=== PATIENT | male | born 1955 | race Caucasian/White ===

== ENCOUNTER 2017-08-04 12:07 | Emergency (ER) | payer OTHER ==
[2017-08-04 12:16] VITALS: RESP 18; O2SAT 98
--- NOTE | 2017-08-04 12:19 | EDPHY ---
H & P Stated Complaint: ?Diverticulitis flare up since Saturday after ETOH consumption Time Seen by Provider: 08/04/17 12:19 - Personal History Current Tetanus Diphtheria and Acellular Pertussis (TDAP): Unsure - Medical/Surgical History Hx Asthma: No Hx Chronic Respiratory Disease: No Hx Diabetes: No Hx Cardiac Disease: Yes Hx Renal Disease: No Hx Cirrhosis: No Hx Alcoholism: Yes Hx HIV/AIDS: No Hx Splenectomy or Spleen Trauma: No Other PMH: diverticulitis, enlarged aorta, left ventricular hypertrophy, HTN, alcohol issues - Social History Smoking Status: Light smoker Constitutional: Initial Vital Signs Temperature (C) 37.4 C 08/04/17 12:10 Heart Rate 84 08/04/17 12:10 Respiratory Rate 18 08/04/17 12:10 Blood Pressure 111/80 08/04/17 12:10 O2 Sat (%) 98 08/04/17 12:10 O2 Delivery Mode Room Air Allergies/Adverse Reactions: No Known Allergies Allergy (Verified 08/04/17 12:15) Home Medications: Medication Instructions Recorded Ramipril 02/13/15 Ondansetron Odt [Zofran Odt 4 mg 4 mg PO Q4 PRN #6 tab 04/06/15 (*)] Amoxicillin/Clavulanate Pot 875 mg PO 08/04/17 [Augmentin 875 MG TAB (*)] Amoxicillin/Clavulanate Pot 875 mg PO BID #20 tab 08/04/17 [Augmentin 875 MG TAB (RX)] Citalopram [CeleXA 20 MG] 08/04/17 HYDROcodone/APAP 10/325 [[place] 1 - 2 each PO Q4-6PRN PRN #20 tab 08/04/17 10/325] Medical Decision Making - Diagnostics Imaging Results: Imaging Impressions Abdomen CT 08/04/17 12:36 Impression: 1. Diverticulosis throughout the colon with evidence of mild diverticulitis in the inferior descending colon in the left pelvis. 2. Degenerative disk and degenerative joint disease lumbar spine, most severe at L5-S1. Bilateral sacroiliitis. 3. Fatty infiltration of the liver. Results called and discussed with Juan F Galvan MD on August 04, 2017 at 1332 hours. ED Course/Re-evaluation: CHIEF COMPLAINT: Recurrent diverticulitis HISTORY OF PRESENT ILLNESS: 62-year-old gentleman who has a history of alcoholism and diverticulitis. He had a drinking binge on Saturday or Saturday of this past week. He also feels like he is having a flare-up diverticulitis of his sigmoid colon which she has had multiple times in the past. He has had of times at his doctor provide him with Augmentin prescription to keep on hand he started that a few days ago. He is having nausea vomiting diarrhea and left lower quadrant abdominal pain which is continued came here for further evaluation. Denies any fevers or chills. REVIEW OF SYSTEMS: A 10 point review of systems was performed and is negative with the exception of the elements mentioned in the history of present illness. PHYSICAL EXAM: HR, BP, O2 Sat, RR. Temp noted General Appearance: Alert, well hydrated, appropriate, and non-toxic appearing. Head: Atraumatic without scalp tenderness or obvious injury Eyes: Pupils equal, round, reactive to light and accommodation, EOMI, no trauma , no injection. Ears: Clear bilaterally, no perforation, normal landmarks Nose: Atraumatic, no rhinorrhea, clear. Throat: There is no erythema or exudates, no lesions, normal tonsils, mucus membranes moist. Neck: Supple, 2+ carotid upstroke, nontender, no lymphadenopathy. Respiratory: No retractions, no distress, no wheezes, and no accessory muscle use. Lungs are clear to auscultation bilaterally. Cardiovascular: Regular rate and rhythm, no murmurs, rubs, or gallops. Bilateral carotid, radial, dorsalis pedis, and posterior tibial pulses intact. Good capillary refill all extremities. Gastrointestinal: Abdomen is soft, tenderness in left lower quadrant, non- distended, no masses, no rebound, no guarding, no peritoneal signs. Musculoskeletal: Normal active ROM of all extremities, atraumatic. Neurological: Alert, appropriate, and interactive. The patient has normal DTRs and non-focal cranial nerves, motor, sensory, and cerebellar exam. Skin: No rashes, good turgor, no nodules on palpation. Past medical history: Diverticulitis and alcoholism Past surgical history: Noncontributory Family history: Noncontributory Social history: Employed, single, does not abuse tobacco or drugs, alcohol abuse which she is trying to control DIAGNOSTICS/PROCEDURES/CRITICAL CARE TIME: Study: CT of the abdomen and pelvis with IV contrast Indication: left lower quadrant pain nausea vomiting diarrhea history of diverticulitis Results: CT scan of the body parts was obtained. The results of the study are uncomplicated left sigmoid colon diverticulitis. The study was read by the radiologist, . I viewed the images myself on the PACS system. DIFFERENTIAL DIAGNOSIS: The differential diagnosis for the patient's abdominal pain included but was not limited to appendicitis, cholecystitis, hernias, testicular torsion, gastritis, and urinary tract infection. MEDICAL DECISION MAKING: This patient is not systemically ill. He does have left lower quadrant tenderness nausea vomiting diarrhea. He feels like he has recurring episode of diverticular disease. Although he had significant amount alcohol a few days ago he has not had a significant amount recently and does not feel like his alcohol is a contributor to today's visit. Laboratory studies CT scan are pending. He has been on the Augmentin 875 mg twice daily for the last 2-3 days. 1332: I confirmed diagnosis with radiology. Plan for discharge with Augmentin and analgesics. Followup instructions and return precautions given. Patient agrees to this course of action. - Data Points Laboratory Results: Laboratory Results 08/04/17 12:11 08/04/17 12:11 08/04/17 08/04/17 08/04/17 12:37 12:11 12:11 WBC 11.65 10^3/uL H 10^3/uL (3.80-9.50) RBC 4.88 10^6/uL 10^6/uL (4.40-6.38) Hgb 16.7 g/dL g/dL (13.7-17.5) POC Hgb 17.3 gm/dL gm/dL (13.7-17.5) Hct 47.5 % % (40.0-51.0) POC Hct 51 % % (40-51) MCV 97.3 fL fL (81.5-99.8) MCH 34.2 pg H pg (27.9-34.1) MCHC 35.2 g/dL g/dL (32.4-36.7) RDW 13.3 % % (11.5-15.2) Plt Count 256 10^3/uL 10^3/uL (150-400) MPV 11.6 fL fL (8.7-11.7) Neut % (Auto) 75.4 % H % (39.3-74.2) Lymph % (Auto) 11.2 % L % (15.0-45.0) [place] % (Auto) 11.6 % % (4.5-13.0) Eos % (Auto) 0.8 % % (0.6-7.6) Baso % (Auto) 0.6 % % (0.3-1.7) Nucleat RBC Rel Count 0.0 % % (0.0-0.2) Absolute Neuts (auto) 8.78 10^3/uL H 10^3/uL (1.70-6.50) Absolute Lymphs (auto) 1.31 10^3/uL 10^3/uL (1.00-3.00) Absolute Monos (auto) 1.35 10^3/uL H 10^3/uL (0.30-0.80) Absolute Eos (auto) 0.09 10^3/uL 10^3/uL (0.03-0.40) Absolute Basos (auto) 0.07 10^3/uL 10^3/uL (0.02-0.10) Absolute Nucleated RBC 0.00 10^3/uL 10^3/uL (0-0.01) Immature Gran % 0.4 % % (0.0-1.1) Immature Gran # 0.05 10^3/uL 10^3/uL (0.00-0.10) POC Sodium 140 mEq/L mEq/L (134-144) Sodium 141 mEq/L mEq/L (134-144) POC Potassium 3.7 mEq/L mEq/L (3.3-5.0) Potassium 4.0 mEq/L mEq/L (3.5-5.2) POC Chloride 103 mEq/L mEq/L (97-110) Chloride 101 mEq/L mEq/L (97-110) Carbon Dioxide 27 mEq/l mEq/l (22-31) Anion Gap 13 mEq/L mEq/L (8-16) POC BUN 20 mg/dL mg/dL (7-23) BUN 19 mg/dL mg/dL (7-23) Creatinine 1.0 mg/dL mg/dL (0.7-1.3) POC Creatinine 1.0 mg/dL mg/dL (0.7-1.3) Estimated GFR > 60 Glucose 110 mg/dL H mg/dL (70-100) POC Glucose 112 mg/dL H mg/dL (70-100) Calcium 10.1 mg/dL mg/dL (8.5-10.4) Total Bilirubin 0.7 mg/dL mg/dL (0.1-1.4) Conjugated Bilirubin 0.1 mg/dL mg/dL (0.0-0.5) Unconjugated Bilirubin 0.6 mg/dL mg/dL (0.0-1.1) AST 35 IU/L IU/L (17-59) ALT 48 IU/L IU/L (21-72) Alkaline Phosphatase 82 IU/L IU/L (38-126) Total Protein 7.1 g/dL g/dL (6.3-8.2) Albumin 4.3 g/dL g/dL (3.5-5.0) Lipase 54 IU/L IU/L (23-300) Medications Given: Discontinued Medications Sodium Chloride (Ns) 1,000 mls @ 0 mls/hr IV EDNOW ONE; Wide Open PRN Reason: Protocol Stop: 08/04/17 12:37 Last Admin: 08/04/17 12:43 Dose: 1,000 mls Sodium Chloride (Ns) 1,000 mls @ 0 mls/hr IV EDNOW ONE; Wide Open PRN Reason: Protocol Stop: 08/04/17 12:37 Last Admin: 08/04/17 13:35 Dose: 1,000 mls Ondansetron HCl (Zofran) 4 mg IVP EDNOW ONE Stop: 08/04/17 12:37 Last Admin: 08/04/17 12:43 Dose: 4 mg Ondansetron HCl (Zofran Odt 4 Mg Prepack#2) 1 btl TAKEHOME EDNOW ONE Stop: 08/04/17 13:51 Last Admin: 08/04/17 13:53 Dose: 1 btl Point of Care Test Results: 08/04/17 12:37 POC Sodium 140 POC Potassium 3.7 POC Chloride 103 POC BUN 20 POC Creatinine 1.0 POC Glucose 112 H Departure - Departure Disposition: Home, Routine, Self-Care Clinical Impression: Sigmoid diverticulitis Condition: Good Instructions: Ondansetron (By mouth), Diverticulitis (ED), Diverticulitis Diet (ED) Additional Instructions: 1. Take medications as directed. 2. Follow up with your primary care provider for unimproved symptoms in 2-3 days. 3. Return to the ED for worsening of condition. Referrals: Neema Sebastian MD [Primary Care Provider] - As per Instructions Prescriptions: Amoxicillin/Clavulanate Pot [Augmentin 875 MG TAB (RX)] 875 mg PO BID #20 tab HYDROcodone/APAP 10/325 [[place] 10/325] 1 - 2 each PO Q4-6PRN PRN #20 tab PRN Reason: Pain, Moderate Report Scribed for: Juan F Galvan Report Scribed by: Mirella Vincent Date of Report: 08/04/17 Time of Report: 13:38
[2017-08-04] MEDS ORDERED: ONDANSETRON 4 MG/2 ML VIAL IVP ONE (12:36)
[2017-08-04] MEDS ORDERED: NS 1,000 ML IV ONE ×2 (12:36)
[2017-08-04] MEDS ORDERED: IOPAMIDOL (ISOVUE-300) 100 ML BTL ONE (12:51)
[2017-08-04 12:53] LABS: % IMMATURE GRANULYOCYTES 0.4 % (0.0-1.1); ABSOLUTE IMMATURE GRANULOCYTES 0.05 10^3/uL (0.00-0.10); ADD DIFF? NO; ADD MORPH? NO; ADD SCAN? NO; ATYPICAL LYMPHOCYTE FLAG 0 (0-99); FRAGMENT RBC FLAG 0 (0-99); HEMATOCRIT 47.5 % (40.0-51.0); HEMOGLOBIN 16.7 g/dL (13.7-17.5); LEFT SHIFT FLG 0 (0-99); LIPEMIA HEMOLYSIS FLAG 90 (0-99); MEAN CELL HEMOGLOBIN 34.2 pg (27.9-34.1); MEAN CELL HEMOGLOBIN CONCENTR. 35.2 g/dL (32.4-36.7); MEAN CELL VOLUME 97.3 fL (81.5-99.8); MEAN PLATELET VOLUME 11.6 fL (8.7-11.7); PLATELET CLUMPS FLAG 20 (0-99); PLATELET COUNT 256 10^3/uL (150-400); RED BLOOD CELL COUNT 4.88 10^6/uL (4.40-6.38); RED CELL DISTRIBUTION WIDTH 13.3 % (11.5-15.2)
[2017-08-04 13:03] LABS: ALANINE AMINOTRANSFERASE 48 IU/L (21-72); ALBUMIN 4.3 g/dL (3.5-5.0); ALKALINE PHOSPHATASE 82 IU/L (38-126); ANION GAP 13 mEq/L (8-16); ASPARTATE AMINOTRANSFERASE 35 IU/L (17-59); BILIRUBIN,TOTAL 0.7 mg/dL (0.1-1.4); BILIRUBIN-CONJUGATED 0.1 mg/dL (0.0-0.5); BILIRUBIN-UNCONJUGATED 0.6 mg/dL (0.0-1.1); CALCIUM 10.1 mg/dL (8.5-10.4); CARBON DIOXIDE 27 mEq/l (22-31); CHLORIDE 101 mEq/L (97-110); GLOMERULAR FILTRATION RATE > 60; GLUCOSE 110 mg/dL (70-100); SODIUM 141 mEq/L (134-144); TOTAL PROTEIN 7.1 g/dL (6.3-8.2)
[2017-08-04 13:50] VITALS: BP 111/64; PULSE 63; TEMP 98.6
[2017-08-04] MEDS ORDERED: ONDANSETRON 4MG PREPACK#2 BTL TAKEHOME ONE (13:50)
== END 2017-08-04 14:03 | disposition home or self-care (01) ==
PROC: 3E0337Z Introduction of Electrolytic and Water Balance Substance into Peripheral Vein, Percutaneous Approach (ICD-10-PCS; principal; 2017-08-04)
DX: K57.32 Diverticulitis of large intestine without perforation or abscess without bleeding (principal); I10 Essential (primary) hypertension; F17.200 Nicotine dependence, unspecified, uncomplicated; E86.9 Volume depletion, unspecified
CPT/HCPCS: 82947-QW; 96374; J2405; Q9967

== ENCOUNTER 2017-08-05 18:59 | Emergency (ER) | payer OTHER ==
--- NOTE | 2017-08-05 19:23 | EDPHY ---
H & P Stated Complaint: seen yesterday, new fever, N/V/D worse HPI/ROS: CHIEF COMPLAINT: Nausea vomiting diarrhea HISTORY OF PRESENT ILLNESS: 62-year-old male seen emergency department yesterday, diagnosis diverticulitis, returns to the ER stating that he had continued intermittent episodes of vomiting and diarrhea today. His pain is controlled. No fever. Patient thinks he would feel better with IV hydration. No melena or hematochezia. No pus in stool. No Definitive fever. REVIEW OF SYSTEMS: A ten point review of systems was performed and is negative with the exception of the items mentioned in the HPI PAST MEDICAL & SURGICAL HISTORY: Diverticulitis. SOCIAL HISTORY:daily alcohol use PHYSICAL EXAM (Prior to examination, patient consented to physical exam, hands were washed and my usual and customary physical exam procedures followed) 1) GENERAL: Well-developed, well-nourished, alert and oriented. Appears to be in no acute distress. Smiling does ambulating with normal gait. 2) HEAD: Normocephalic, atraumatic 3) HEENT: Pupils equal, round, reactive to light bilaterally. Sclera anicteric. Nasopharynx, oropharynx, clear, no lesions. Moist mucous membranes Ears bilaterally with normal tympanic membranes. 4) NECK: Full range of motion, no meningeal signs. 5) LUNGS: Clear auscultation bilaterally, no wheezes, no rhonchi, no retractions. 6) HEART: Regular rate and rhythm, no murmur, no heave, no gallop. 7) ABDOMEN: No guarding, no rebound, tender to palpation left lower quadrant negative McBurney's, negative Woo's, negative peritoneal sign, 8) MUSCULOSKELETAL: Moving all extremities, no focal areas of tenderness, no obvious trauma. No peripheral edema or discoloration. 9) BACK: No CVA tenderness, no midline vertebral tenderness, no fluctuance, no step-off, no obvious trauma, no visual or palpable abnormality. 10) SKIN: No rash, no petechiae. 11) Psychiatric: Patient is oriented X 3, there is no agitation. DIFFERENTIAL DIAGNOSIS: in no particular include but limited to diverticulitis , medication adverse effect, diverticular abscess, diverticular perforation - Personal History Current Tetanus/Diphtheria Vaccine: No - Medical/Surgical History Hx Asthma: No Hx Chronic Respiratory Disease: No Hx Diabetes: No Hx Cardiac Disease: Yes Hx Renal Disease: No Hx Cirrhosis: No Hx Alcoholism: Yes Hx HIV/AIDS: No Hx Splenectomy or Spleen Trauma: No Other PMH: PMHx: diverticulitis, enlarged aorta, left ventricular hypertrophy, HTN, alcohol issues. PSHx: denies - Social History Smoking Status: Light smoker Constitutional: Initial Vital Signs Temperature (C) 37.6 C 08/05/17 19:03 Heart Rate 81 08/05/17 19:03 Respiratory Rate 14 08/05/17 19:03 Blood Pressure 121/81 H 08/05/17 19:03 O2 Sat (%) 96 08/05/17 19:03 O2 Delivery Mode Room Air Allergies/Adverse Reactions: No Known Allergies Allergy (Verified 08/04/17 12:15) Home Medications: Medication Instructions Recorded Ramipril 02/13/15 Ondansetron Odt [Zofran Odt 4 mg 4 mg PO Q4 PRN #6 tab 04/06/15 (*)] Amoxicillin/Clavulanate Pot 875 mg PO 08/04/17 [Augmentin 875 MG TAB (*)] Amoxicillin/Clavulanate Pot 875 mg PO BID #20 tab 08/04/17 [Augmentin 875 MG TAB (RX)] Citalopram [CeleXA 20 MG] 08/04/17 HYDROcodone/APAP 10/325 [[place] 1 - 2 each PO Q4-6PRN PRN #20 tab 08/04/17 10/325] Ondansetron Odt [Zofran Odt] 4 mg PO Q4PRN PRN #10 tab 08/05/17 Medical Decision Making ED Course/Re-evaluation: 7:08 p.m.: Old medical records reviewed including CT imaging reports from yesterday. Discussed case with secondary supervising physician Dr. Galvan in the ER who is familiar with the patient's care. At this time I do not think that repeat CT imaging is currently indicated as he had CT scan performed yesterday. Will administer IV hydration, check laboratory studies and re- evaluate. 8:17 p.m.: Patient was re-evaluated with serial examinations. At this time I do not think that repeat imaging studies indicated. [place] is noted [place] [id number] however given his current clinical appearance, CT imaging performed within 24 hours, doubt diverticular abscess or perforation. I have recommended continuing on the Augmentin . Due to his history of alcohol abuse ciprofloxacin and Flagyl will be held on this patient. He feels comfortable staying on the Augmentin. I have recommend follow-up with Gastroenterology on a nonemergent basis. He will be discharged with Zofran. Usual customary abdominal precautions instructions provided. He feels comfortable being discharged - Data Points Laboratory Results: Laboratory Results 08/05/17 19:32 08/05/17 19:32 08/05/17 08/05/17 19:32 19:32 WBC 18.63 10^3/uL H 10^3/uL (3.80-9.50) RBC 4.38 10^6/uL L 10^6/uL (4.40-6.38) Hgb 15.1 g/dL g/dL (13.7-17.5) Hct 42.4 % % (40.0-51.0) MCV 96.8 fL fL (81.5-99.8) MCH 34.5 pg H pg (27.9-34.1) MCHC 35.6 g/dL g/dL (32.4-36.7) RDW 12.9 % % (11.5-15.2) Plt Count 243 10^3/uL 10^3/uL (150-400) MPV 11.3 fL fL (8.7-11.7) Neut % (Auto) 85.4 % H % (39.3-74.2) Lymph % (Auto) 6.2 % L % (15.0-45.0) [place] % (Auto) 7.2 % % (4.5-13.0) Eos % (Auto) 0.2 % L % (0.6-7.6) Baso % (Auto) 0.4 % % (0.3-1.7) Nucleat RBC Rel Count 0.0 % % (0.0-0.2) Absolute Neuts (auto) 15.91 10^3/uL H 10^3/uL (1.70-6.50) Absolute Lymphs (auto) 1.16 10^3/uL 10^3/uL (1.00-3.00) Absolute Monos (auto) 1.34 10^3/uL H 10^3/uL (0.30-0.80) Absolute Eos (auto) 0.03 10^3/uL 10^3/uL (0.03-0.40) Absolute Basos (auto) 0.07 10^3/uL 10^3/uL (0.02-0.10) Absolute Nucleated RBC 0.00 10^3/uL 10^3/uL (0-0.01) Immature Gran % 0.6 % % (0.0-1.1) Immature Gran # 0.12 10^3/uL H 10^3/uL (0.00-0.10) Sodium 138 mEq/L mEq/L (134-144) Potassium 3.8 mEq/L mEq/L (3.5-5.2) Chloride 102 mEq/L mEq/L (97-110) Carbon Dioxide 23 mEq/l mEq/l (22-31) Anion Gap 13 mEq/L mEq/L (8-16) BUN 12 mg/dL mg/dL (7-23) Creatinine 0.9 mg/dL mg/dL (0.7-1.3) Estimated GFR > 60 Glucose 101 mg/dL H mg/dL (70-100) Calcium 9.2 mg/dL mg/dL (8.5-10.4) Total Bilirubin 0.9 mg/dL mg/dL (0.1-1.4) Conjugated Bilirubin 0.2 mg/dL mg/dL (0.0-0.5) Unconjugated Bilirubin 0.7 mg/dL mg/dL (0.0-1.1) AST 25 IU/L IU/L (17-59) ALT 41 IU/L IU/L (21-72) Alkaline Phosphatase 74 IU/L IU/L (38-126) Total Protein 6.2 g/dL L g/dL (6.3-8.2) Albumin 3.9 g/dL g/dL (3.5-5.0) Lipase 35 IU/L IU/L (23-300) Medications Given: Discontinued Medications Sodium Chloride (Ns) 1,000 mls @ 0 mls/hr IV ONCE ONE PRN Reason: Wide Open Stop: 08/05/17 19:25 Last Admin: 08/05/17 19:40 Dose: 1,000 mls Sodium Chloride (Ns) 1,000 mls @ 3,000 mls/hr IV ONCE ONE Stop: 08/05/17 21:04 Last Admin: 08/05/17 20:48 Dose: 1,000 mls Ondansetron HCl (Zofran) 4 mg IVP EDNOW ONE Stop: 08/05/17 20:45 Last Admin: 08/05/17 20:48 Dose: 4 mg Departure - Departure Disposition: Home, Routine, Self-Care Clinical Impression: Diverticulitis Condition: Good Instructions: Diverticulitis (ED) Additional Instructions: Seek immediate medical attention if you develop new or worsening symptoms, if you develop fevers, chills, inability to tolerate oral intake or any other symptoms that concerns you. Referrals: Neema Sebastian MD [Primary Care Provider] - As per Instructions Julito Currie MD [Medical Doctor] - 5-7 days, call for appt. Prescriptions: Ondansetron Odt [Zofran Odt] 4 mg PO Q4PRN PRN #10 tab PRN Reason: Nausea
[2017-08-05] MEDS ORDERED: NS 1,000 ML IV ONE ×2 (19:24→20:45)
[2017-08-05 19:42] LABS: % IMMATURE GRANULYOCYTES 0.6 % (0.0-1.1); ABSOLUTE IMMATURE GRANULOCYTES 0.12 10^3/uL (0.00-0.10); ADD DIFF? NO; ADD MORPH? NO; ADD SCAN? NO; ATYPICAL LYMPHOCYTE FLAG 0 (0-99); FRAGMENT RBC FLAG 0 (0-99); HEMATOCRIT 42.4 % (40.0-51.0); HEMOGLOBIN 15.1 g/dL (13.7-17.5); LEFT SHIFT FLG 10 (0-99); LIPEMIA HEMOLYSIS FLAG 90 (0-99); MEAN CELL HEMOGLOBIN 34.5 pg (27.9-34.1); MEAN CELL HEMOGLOBIN CONCENTR. 35.6 g/dL (32.4-36.7); MEAN CELL VOLUME 96.8 fL (81.5-99.8); MEAN PLATELET VOLUME 11.3 fL (8.7-11.7); PLATELET CLUMPS FLAG 20 (0-99); PLATELET COUNT 243 10^3/uL (150-400); RED BLOOD CELL COUNT 4.38 10^6/uL (4.40-6.38); RED CELL DISTRIBUTION WIDTH 12.9 % (11.5-15.2)
[2017-08-05 19:58] LABS: ALANINE AMINOTRANSFERASE 41 IU/L (21-72); ALBUMIN 3.9 g/dL (3.5-5.0); ALKALINE PHOSPHATASE 74 IU/L (38-126); ANION GAP 13 mEq/L (8-16); ASPARTATE AMINOTRANSFERASE 25 IU/L (17-59); BILIRUBIN,TOTAL 0.9 mg/dL (0.1-1.4); BILIRUBIN-CONJUGATED 0.2 mg/dL (0.0-0.5); BILIRUBIN-UNCONJUGATED 0.7 mg/dL (0.0-1.1); CALCIUM 9.2 mg/dL (8.5-10.4); CARBON DIOXIDE 23 mEq/l (22-31); CHLORIDE 102 mEq/L (97-110); CREATININE 0.9 mg/dL (0.7-1.3); GLOMERULAR FILTRATION RATE > 60; GLUCOSE 101 mg/dL (70-100); POTASSIUM 3.8 mEq/L (3.5-5.2); SODIUM 138 mEq/L (134-144); TOTAL PROTEIN 6.2 g/dL (6.3-8.2)
[2017-08-05] MEDS ORDERED: ONDANSETRON 4 MG/2 ML VIAL IVP ONE (20:44)
[2017-08-05 21:28] VITALS: BP 126/80; PULSE 68; RESP 18; TEMP 99.3; O2SAT 98
== END 2017-08-05 21:33 | disposition home or self-care (01) ==
DX: K57.92 Diverticulitis of intestine, part unspecified, without perforation or abscess without bleeding (principal); I10 Essential (primary) hypertension; F17.200 Nicotine dependence, unspecified, uncomplicated
CPT/HCPCS: 96374; J2405

== ENCOUNTER 2018-09-06 15:14 | Emergency (ER) | payer OTHER ==
[2018-09-06 15:20] VITALS: BP 124/82
[2018-09-06] MEDS ORDERED: PROMETHAZINE HCL 25 MG/ML INJ IVP ONE (15:29)
[2018-09-06] MEDS ORDERED: ONDANSETRON 4 MG/2 ML VIAL IVP ONE (15:29)
[2018-09-06] MEDS ORDERED: FAMOTIDINE 20 MG/NACL 50 ML IV ONE (15:29)
[2018-09-06] MEDS ORDERED: NS 1,000 ML IV ONE (15:29)
--- NOTE | 2018-09-06 15:53 | EDPHY ---
H & P Time Seen by Provider: 09/06/18 15:28 HPI/ROS: HPI Alcohol abuse. Nausea and vomiting. 63-year-old male by private vehicle. This patient reports that he has a history of alcohol abuse. He was off of alcohol for some time. Secondary to family problems he started drinking about a month ago. He has had marital issues this week. He states that he use this as an excuse to drink more. He states that he has been drinking at least a full pt of hard liquor per day. He reports that on Saturday he started feeling sick to his stomach. He then started vomiting. He reports that he drank more on but then started vomiting evening. He reports that he has not been able to keep anything down since that time. He reports that his last drink was on . He does have a history of diverticulitis. He denies any significant abdominal pain. No foreign travel. No ill contacts. No change in diet. ROS: Constitutional: No fever, no chills. No weakness. Eyes: No discharge. No changes in vision. ENT: No sore throat. No nasal congestion or rhinorrhea. Respiratory: No cough. No shortness of breath. Cardiac: No chest pain, no palpitations. Gastrointestinal: As above. No diarrhea. Genitourinary: No hematuria. No dysuria or increased frequency with urination. Musculoskeletal: No back pain. No neck pain. No myalgias or arthralgias. Skin: No rashes. Neurological: No headache. No focal weakness or altered sensation. Past medical history: Diverticulitis, enlarged aorta, alcohol abuse, left ventricular hypertrophy, hypertension. Social history: . Currently here by himself. As above. Nonsmoker. Physical Exam: General Appearance: Alert, he is not in distress. This patient is responding to questions appropriately and in full sentences. This patient appears well- hydrated and well-nourished. Eyes: Pupils equal and round no pallor or injection. No lid edema, erythema or injection. Respiratory: There are no retractions, lungs are clear to auscultation with good air movement bilaterally. Cardiovascular: Regular rate and rhythm. No murmur. Gastrointestinal: Abdomen is soft and nontender, no masses, bowel sounds normal. No focal tenderness at McBurney's point. No Woo sign. Neurological: Motor sensory function is grossly intact. Cranial nerves are normal. Gait is normal. He has a mild resting tremor. Skin: Warm and dry, no rashes. Musculoskeletal: Neck is supple and nontender. Extremities are symmetrical. All joints range without pain or impingement. Psychiatric: No agitation. No depression. Database: EKG: Imaging: Procedures: Emergency department course: Triage vital signs reviewed and are normal. IV was placed. He was started on IV normal saline with 1-2 L to be given over the next 1-2 hours. He initially be given 4 mg of IV Zofran, 12.5 mg of IV Phenergan and 20 mg of IV Pepcid for his nausea and vomiting. He has a benign abdomen. Blood work will be obtained. He will be given Valium if he show significant signs of withdrawal. I also explained to him that I would prescribe him Valium to treat withdrawal on discharge which is is likely disposition. 4:45 p.m., the patient was re-evaluated, resting comfortably at this time. He is feeling much better. His vital signs have remained normal. Repeat abdominal exam is soft, nontender nondistended. He is now tolerating oral fluids. I discussed the results of his blood work. He feels comfortable going home and I feel he is safe for discharge. I will prescribe him both Valium and Zofran as above. He feels comfortable with this plan. I discussed follow-up with his primary care physician for re-evaluation. Return to emergency department precautions were thoroughly reviewed. All of his questions were answered. He was discharged from the emergency department in good condition. Differential Diagnosis: The differential diagnosis on this patient includes but is not limited to alcoholic gastritis. Perforated peptic ulcer, pancreatitis, cholecystitis, bowel obstruction, other acute surgical etiology unlikely. This represents a partial list of diagnoses considered. These considerations are based on history , physical exam, past history, reassessment and diagnostic testing. Smoking Status: Current every day smoker Constitutional: Initial Vital Signs Temperature (C) 37.1 C 09/06/18 15:18 Heart Rate 78 09/06/18 15:18 Respiratory Rate 16 09/06/18 15:18 Blood Pressure 124/82 H 09/06/18 15:18 O2 Sat (%) 97 09/06/18 15:18 O2 Delivery Mode Room Air Allergies/Adverse Reactions: No Known Allergies Allergy (Verified 08/04/17 12:15) Home Medications: Medication Instructions Recorded Ramipril 02/13/15 Citalopram [CeleXA 20 MG] 08/04/17 Diazepam [Valium 10 MG (*)] 10 mg PO PRN PRN #7 tab 09/06/18 Naltrexone 09/06/18 Ondansetron Odt [Zofran Odt 4 mg 4 mg PO Q4PRN PRN #10 tab 09/06/18 (*)] Medical Decision Making - Data Points Laboratory Results: Laboratory Results 09/06/18 15:35 09/06/18 15:35 09/06/18 09/06/18 15:35 15:35 WBC 13.65 10^3/uL H 10^3/uL (3.80-9.50) RBC 4.95 10^6/uL 10^6/uL (4.40-6.38) Hgb 16.5 g/dL g/dL (13.7-17.5) Hct 47.5 % % (40.0-51.0) MCV 96.0 fL fL (81.5-99.8) MCH 33.3 pg pg (27.9-34.1) MCHC 34.7 g/dL g/dL (32.4-36.7) RDW 13.1 % % (11.5-15.2) Plt Count 256 10^3/uL 10^3/uL (150-400) MPV 11.2 fL fL (8.7-11.7) Neut % (Auto) 83.3 % H % (39.3-74.2) Lymph % (Auto) 7.8 % L % (15.0-45.0) [place] % (Auto) 8.2 % % (4.5-13.0) Eos % (Auto) 0.0 % L % (0.6-7.6) Baso % (Auto) 0.2 % L % (0.3-1.7) Nucleat RBC Rel Count 0.0 % % (0.0-0.2) Absolute Neuts (auto) 11.37 10^3/uL H 10^3/uL (1.70-6.50) Absolute Lymphs (auto) 1.06 10^3/uL 10^3/uL (1.00-3.00) Absolute Monos (auto) 1.12 10^3/uL H 10^3/uL (0.30-0.80) Absolute Eos (auto) 0.00 10^3/uL L 10^3/uL (0.03-0.40) Absolute Basos (auto) 0.03 10^3/uL 10^3/uL (0.02-0.10) Absolute Nucleated RBC 0.00 10^3/uL 10^3/uL (0-0.01) Immature Gran % 0.5 % % (0.0-1.1) Immature Gran # 0.07 10^3/uL 10^3/uL (0.00-0.10) Sodium 136 mEq/L mEq/L (135-145) Potassium 3.7 mEq/L mEq/L (3.5-5.2) Chloride 103 mEq/L mEq/L (97-110) Carbon Dioxide 23 mEq/l mEq/l (22-31) Anion Gap 10 mEq/L mEq/L (6-14) BUN 25 mg/dL H mg/dL (7-23) Creatinine 0.9 mg/dL mg/dL (0.7-1.3) Estimated GFR > 60 Glucose 112 mg/dL H mg/dL (70-100) Calcium 10.0 mg/dL mg/dL (8.5-10.4) Total Bilirubin 1.8 mg/dL H mg/dL (0.1-1.4) Conjugated Bilirubin 0.3 mg/dL mg/dL (0.0-0.5) Unconjugated Bilirubin 1.5 mg/dL H mg/dL (0.0-1.1) AST 26 IU/L IU/L (17-59) ALT 20 IU/L L IU/L (21-72) Alkaline Phosphatase 69 IU/L IU/L (38-126) Total Protein 8.3 g/dL H g/dL (6.3-8.2) Albumin 4.9 g/dL g/dL (3.5-5.0) Lipase 665 IU/L H IU/L (23-300) Medications Given: Discontinued Medications Sodium Chloride (Ns) 1,000 mls @ 0 mls/hr IV EDNOW ONE; Wide Open PRN Reason: Protocol Stop: 09/06/18 15:30 Last Admin: 09/06/18 15:44 Dose: 1,000 mls Famotidine/Sodium Chloride (Pepcid 20 Mg (Premix)) 50 mls @ 200 mls/hr IV EDNOW ONE Stop: 09/06/18 15:43 Last Admin: 09/06/18 15:47 Dose: 50 mls Ondansetron HCl (Zofran) 4 mg IVP EDNOW ONE Stop: 09/06/18 15:30 Last Admin: 09/06/18 15:45 Dose: 4 mg Promethazine HCl (Phenergan) 12.5 mg IVP EDNOW ONE Stop: 09/06/18 15:30 Last Admin: 09/06/18 15:46 Dose: 12.5 mg Departure - Departure Disposition: Home, Routine, Self-Care Clinical Impression: Nausea and vomiting, Alcoholic gastritis Condition: Good Instructions: Gastritis (ED) Additional Instructions: Read and follow provided instructions. Follow-up with your primary care physician on Saturday for re-evaluation and further treatment as discussed. Take medication as prescribed for nausea and alcohol withdrawal. Return to the emergency department for worsening symptoms, worsening abdominal pain, vomiting and inability to keep fluids down despite medications or other serious concerns. Referrals: NONE *PRIMARY CARE P,. [Primary Care Provider] - As per Instructions Prescriptions: Diazepam [Valium 10 MG (*)] 10 mg PO PRN PRN #7 tab PRN Reason: Anxiety Ondansetron Odt [Zofran Odt 4 mg (*)] 4 mg PO Q4PRN PRN #10 tab PRN Reason: For Nausea & Vomiting
[2018-09-06 16:26] LABS: PLATELET COUNT 256 10^3/uL (150-400)
== END 2018-09-06 17:12 | disposition home or self-care (01) ==
DX: R11.2 Nausea with vomiting, unspecified (principal); K29.20 Alcoholic gastritis without bleeding; F10.10 Alcohol abuse, uncomplicated
CPT/HCPCS: 96374; J2405; J2550

== ENCOUNTER 2019-02-02 08:55 | Inpatient (IN) | payer OTHER ==
[~2019-02-02 08:55] MED LIST: cefOXitin SODIUM 2 GM in NS 100 ML IV ONE
[2019-02-02] MEDS ORDERED: LR 1,000 ML IV ONE (11:22)
[2019-02-02] MEDS ORDERED: LIDOCAINE 1% 2 ML INJ ID PRN (11:22)
[2019-02-02] MEDS ORDERED: MIDAZOLAM 2 MG/2 ML VIAL IVP ONE (13:14)
--- NOTE | 2019-02-02 13:18 | PDANEPAE ---
ANE History of Present Illness L lower colectomy Sotero assisted for diverticulitis ANE Past Medical History - Cardiovascular History Hx Hypertension: Yes Hx Arrhythmias: No Hx Chest Pain: No Hx Coronary Artery / Peripheral Vascular Disease: No Hx CHF / Valvular Disease: No Hx Palpitations: No Cardiovascular History Comment: enlarged aorta - Pulmonary History Hx COPD: No Hx Asthma/Reactive Airway Disease: No Hx Recent Upper Respiratory Infection: No Hx Oxygen in Use at Home: No Hx Sleep Apnea: No Sleep Apnea Screening Result - Last Documented: Positive Pulmonary History Comment: pt quit 1 week ago - Neurologic History Hx Cerebrovascular Accident: No Hx Seizures: No Hx Dementia: No - Endocrine History Hx Diabetes: No - Renal History Hx Renal Disorders: No - Liver History Hx Hepatic Disorders: No - Neurological & Psychiatric Hx Hx Neurological and Psychiatric Disorders: Yes Neurological / Psychiatric History Comment: deppression/anxiety - Cancer History Hx Cancer: No - Congenital Disorder History Hx Congenital Disorders: Yes Congenital History Comment: congenital heart defect-mildly dilated aorta - GI History Hx Gastrointestinal Disorders: Yes Gastrointestinal History Comment: diverticulitis - Other Health History Other Health History: none - Chronic Pain History Chronic Pain: Yes (left knee) - Surgical History Prior Surgeries: none in last 5 yrs. right shoulder scope 2009 ANE Review of Systems Review of Systems: - Exercise capacity METS (RN): 4 METS ANE Patient History - Allergies Allergies/Adverse Reactions: No Known Allergies Allergy (Verified 01/28/19 12:09) - Home Medications Home medications: home medication list seen and reviewed Home Medications: Ramipril [Altace 5mg (*)] 5 mg PO DAILY 02/13/15 [Last Taken 02/02/19 08:00] Escitalopram Oxalate [Lexapro] 20 mg PO DAILY 01/21/19 [Last Taken 02/02/19 08: 00] Multivitamins [Multivitamin (*)] 1 each PO DAILY 01/21/19 [Last Taken 1 Week Ago ~01/26/19] Naphazoline HCl/Pheniramine [Allergy Eye Drops] 1 - 2 drops OP DAILY PRN [Last Taken 02/01/19] Ondansetron HCl [Zofran] 8 mg PO Q4HRS PRN 01/21/19 [Last Taken 3 Months Ago ~] traZODone [traZODONE 100MG (*)] 50 - 100 mg PO HS PRN 01/21/19 [Last Taken 02/01] - NPO status NPO Status: no food or drink >8 hours NPO Since - Liquids (Date): 02/02/19 NPO Since - Liquids (Time): 08:00 NPO Since - Solids (Date): 02/01/19 NPO Since - Solids (Time): 09:00 - Anes Hx Anes Hx: no prior problems - Smoking Hx Smoking Status: Former smoker - Alcohol Use Alcohol Use: None - Family Anes Hx Family Anes Hx: none Family Hx Anesthesia Complications: none ANE Labs/Vital Signs - Vital Signs Blood Pressure: 109/79 Heart Rate: 84 Respiratory Rate: 16 O2 Sat (%): 94 Height: 171.45 cm Weight: 74.843 kg ANE Physical Exam - Airway Neck exam: FROM Mallampati Score: Class 1 Mouth exam: normal dental/mouth exam - Pulmonary Pulmonary: no respiratory distress - Cardiovascular Cardiovascular: regular rate and rhythym - ASA Status ASA Status: II ANE Anesthesia Plan Anesthesia Plan: general endotracheal anesthesia Regional Anesthesia: TAP block (if needed for incision)
[2019-02-02] MEDS ORDERED: BUPIVACAINE 0.5% 30 ML SDV ONE ×3 (13:24→16:59)
[2019-02-02] MEDS ORDERED: PROPOFOL/EMULSION 500 MG/50 ML BOTTLE IV ONE ×2 (13:33→15:16)
[2019-02-02] MEDS ORDERED: fentaNYL 250 MCG/5 ML INJ ONE (13:33)
[2019-02-02] MEDS ORDERED: DEXAMETHASONE 4 MG/ML VIAL ONE ×2 (13:36)
[2019-02-02] MEDS ORDERED: ROCURONIUM 100 MG/10 ML VIAL ONE (13:36)
[2019-02-02] MEDS ORDERED: ONDANSETRON 4 MG/2 ML VIAL ONE ×2 (13:36→17:49)
[2019-02-02] MEDS ORDERED: LIDOCAINE 2% 100 MG/5 ML SYR ONE (13:40)
[2019-02-02] MEDS ORDERED: LIDOCAINE HCL 160 MG/4 ML LTA KIT TP ONE (13:40)
[2019-02-02] MEDS ORDERED: PHENYLEPHRINE HCL 100 MCG/ML SYR ONE (13:51)
[2019-02-02] MEDS ORDERED: INDOCYANINE GREEN 25 MG VIAL ONE (14:52)
[2019-02-02] MEDS ORDERED: ROCURONIUM 50 MG/5 ML VIAL ONE (15:26)
[2019-02-02] MEDS ORDERED: GLYCOPYRROLATE 0.2 MG/1 ML VIAL ONE ×2 (17:04)
[2019-02-02] MEDS ORDERED: NEOSTIGMINE METHYLSULFATE 10 MG/10 ML MDV ONE (17:04)
[2019-02-02] MEDS ORDERED: MEPERIDINE 25 MG/0.5 ML AMP IVP PRN (17:11)
[2019-02-02] MEDS ORDERED: ALBUTEROL 3 ML DEYVIAL IH PRN (17:11)
[2019-02-02] MEDS ORDERED: HYDROCODONE/APAP 5/325 TAB PO PRN (17:11)
[2019-02-02] MEDS ORDERED: NALOXONE HCL 0.4 MG/ML INJ IVP PRN (17:11)
[2019-02-02] MEDS ORDERED: PHENYLEPHRINE HCL 100 MCG/ML SYR IVP PRN (17:11)
[2019-02-02] MEDS ORDERED: HYDROmorphONE/DILAUDID 1 MG/ML INJ IVP PRN (17:11)
[2019-02-02] MEDS ORDERED: oxyCODONE IR 5 MG TAB PO PRN (17:11)
[2019-02-02] MEDS ORDERED: PROMETHAZINE HCL 25 MG/ML INJ IVP PRN (17:11)
[2019-02-02] MEDS ORDERED: METOCLOPRAMIDE 10 MG/2 ML VIAL IVP PRN (17:11)
[2019-02-02] MEDS ORDERED: fentaNYL 100 MCG/2 ML INJ IVP PRN (17:11)
[2019-02-02] MEDS ORDERED: DEXAMETHASONE 4 MG/ML VIAL IVP PRN (17:11)
[2019-02-02] MEDS ORDERED: ONDANSETRON 4 MG/2 ML VIAL IVP PRN (17:11)
[2019-02-02] MEDS ORDERED: LR 500 ML IV PRN (17:11)
[2019-02-02] MEDS ORDERED: LABETALOL HCL 5 MG/ML 20 ML MDV IVP PRN (17:11)
--- NOTE | 2019-02-02 17:39 | POSTOPPROG ---
Post Op Note Date of Operation: 02/02/19 Surgeon: Chet Jean Moss Picker: Dr. Church Anesthesiologist: Dr. Duran Anesthesia: GET(General Endotracheal) Pre-op Diagnosis: Diverticulitis Post-op Diagnosis: same Procedure: Robotic sigmoidectomy Findings: Mild inflammation, no abscess Inf/Abcess present in the surg proc area at time of surgery?: No EBL: 50-100
[2019-02-02] MEDS ORDERED: METOCLOPRAMIDE 10 MG/2 ML VIAL ONE (17:52)
[2019-02-02] MEDS ORDERED: PROMETHAZINE HCL 25 MG/ML INJ ONE (17:52)
[2019-02-02] MEDS ORDERED: fentaNYL 100 MCG/2 ML INJ ONE (17:52)
[2019-02-02] MEDS: ONDANSETRON 4 MG/2 ML VIAL IVP PRN ×2 (18:52→22:32)
[2019-02-02] MEDS ORDERED: hydrALAZINE 25 MG TAB PO ONE (19:30)
[2019-02-02] MEDS: HYDROmorphONE/DILAUDID 1 MG/ML INJ IVP PRN ×2 (19:45→22:25)
[2019-02-02] MEDS: OXYCODONE/APAP 5/325 TAB PO PRN (20:31)
[2019-02-02] MEDS: LR 1,000 ML IV SCH (20:38)
--- NOTE | 2019-02-02 20:45 | GOP ---
[f rep st] OPERATIVE REPORT DATE OF OPERATION: 02/02/2019 SURGEON: Baldo Jean MD STORE HAND: Dr. Church, whose presence was requested by me and medically necessary for the safe and timely completion of the case. ANESTHESIA: General endotracheal anesthesia. ANESTHESIOLOGIST: Cliff Duran MD. PREOPERATIVE DIAGNOSIS: Diverticulitis. POSTOPERATIVE DIAGNOSIS: Diverticulitis. PROCEDURE PERFORMED: Robotic sigmoidectomy. FINDINGS: The patient had a moderate segment of diverticular disease in the sigmoid colon. The patient had a mildly redundant rectum. No abscess or active infection was identified. No other lesions were noted. ESTIMATED BLOOD LOSS: 50 mL. INDICATIONS: This is a 63-year-old male with a history of diverticulitis. Risks and benefits of the procedure were discussed with the patient and his family. Questions answered and they wished to proceed. DESCRIPTION OF PROCEDURE: The patient was in the supine position intially. After the induction of general endotracheal anesthesia, the patient was moved to the modified lithotomy position. Pena was placed and the patient was prepped and draped in the standard surgical fashion. 0.5% marcaine was injected in the periumbilical area. An 8mm incision was made with a # 15 blade and the abdominal wall was elevated. A veress needle was inserted, and after noting proper pressures the abdomen was insufflated with carbon dioxide. An 8mm trocar was passed and a camera followed; there was no apparent damage from port placement. Four more ports were placed under direct vision after injecting 0.5% marcaine. The area was inspected and mild inflammation of the sigmoid was noted. No other lesions were present. The robot was docked and the dissection begun [id number]. The left ureter was seen and preserved through the remainder of the surgery. The mesentery was dissected and branches of the inferior mesenteric artery were transected with the vessel sealer. The white line of Toldt was mobilized to the splenic flexure using blunt dissection and cautery. Points of transection were chosen in the proximal rectum and distal descending colon. Firefly was used to ensure viability. The robotic stapler with a blue load was used to transect the proximal and distal points. Intra-corporeal anastomosis was performed. After ensuring no twisting or tension. a 25 EEA stapler was chosen and the anvil placed in the abdomen. An enterotomy was made near the staple line in the distal descending colon with cautery. The anvil was placed and a purse-string suture of 2-O barbed suture set. The EEA was advanced up the rectum, and again ensuring no twisting or tension the stapler was mated to the anvil. The stapler was fired and withdrawn , and doughnuts were verified. Leak test was performed after obstructing the descending colon; the pelvis was irrigated and air insufflated. No bubbling was noted after three trials. The abdomen was irrigated and good hemostasis noted. No other lesions were identified. The robot was undocked.and the right lower quadrant port incision was extended sharply. The muscle incision was extended with cautery. A wound protector was placed and the sigmoid colon was extracted. The muscle was closed in layers using O PDS running. The area was irrigated and the subcutaneous tissue approximated using 3-O vicryl interrupted. Skin at all sites was closed using 4 -O monocryl subcuticular. The wounds were sterilely dressed. The patient was returned to the supine position, extubated, and taken to the PACU in stable condition. COMPLICATIONS: None. DRAINS: None. /[id number]/MODL MTDD
[2019-02-02] MEDS: GABAPENTIN 100 MG CAP PO SCH (22:16)
[2019-02-02] MEDS: ZOLPIDEM TARTRATE 5 MG TAB PO PRN (22:41)
[2019-02-03] MEDS: HYDROmorphONE/DILAUDID 1 MG/ML INJ IVP PRN (03:27)
[2019-02-03] MEDS: ESCITALOPRAM OXALATE 10 MG TAB PO SCH (08:40)
[2019-02-03] MEDS: GABAPENTIN 100 MG CAP PO SCH ×3 (08:40→21:52)
[2019-02-03] MEDS: RAMIPRIL 5 MG CAP PO SCH (09:05)
[2019-02-03] MEDS: OXYCODONE/APAP 5/325 TAB PO PRN (09:05)
--- NOTE | 2019-02-03 09:31 | PDMN ---
Medical Necessity Medical necessity: Pt meet inpt criteria per MD order and [id number], Bowel Surgery: Colectomy, Partial, with or without Ostomy, by Laparoscopy, MCR IP only list, 3 days. 63 y/o w/diverticulitis admitted for robotic sigmoidectomy and post-op care.
[2019-02-03] MEDS: LR 1,000 ML IV SCH (09:46)
[2019-02-03] MEDS ORDERED: HYDROCODONE/APAP 5/325 TAB PO PRN (10:00)
[2019-02-03] MEDS: KETOROLAC 15 MG/1 ML SDV IVP SCH ×3 (11:33→23:14)
--- NOTE | 2019-02-03 15:03 | ASMTCMCOM ---
CM Note CM Note Notes: Pt is a 63 y/o man admitted for diverticula of intestine. CM met w/ pt and introduced self. Pt reports a hx of etoh abuse and has been off and on the wagon for a long time. Pt reports that he has a sponsor and goes to AA. Pt is aware of the warning signs. Pt does not need resources at this time. CM to available for changes. Plan: Independent Date Signed: 02/03/2019 03:02 PM Electronically Signed By:JACKELYN Nunez
--- NOTE | 2019-02-03 15:28 | SOAPPROG ---
SOAP Progress Note Assessment/Plan: Assessment: S/P robotic sigmoid, doing well. HLIV, advance diet. Pena out. Ambulate, IS. D/w patient, questions answered. Plan: 02/03/19 15:26 Subjective: Patient feels better, pain improved. Some nausea last PM, none now. Objective: Vital Signs Temp Pulse Resp BP Pulse Ox 37.1 C 56 L 18 97/60 L 96 02/03/19 15:21 02/03/19 15:21 02/03/19 15:21 02/03/19 15:21 02/03/19 15:21 Laboratory Results 02/03/19 04:52 02/03/19 04:52 02/02/19 02/03/19 02/04/19 05:59 05:59 05:59 Intake Total 2000 Output Total 3175 2 Balance -1175 -2 Alert, NAD RRR Abd sl distended but soft. Inc C/D/I without erythema. ICD10 Worksheet Patient Problems: Problems Problem Status Onset Diverticulitis large intestine Acute - ICD10 Problem Qualifiers (1) Diverticulitis large intestine
[2019-02-03] MEDS: ZOLPIDEM TARTRATE 5 MG TAB PO PRN (23:14)
[2019-02-04] MEDS: KETOROLAC 15 MG/1 ML SDV IVP SCH ×4 (05:21→23:59)
[2019-02-04] MEDS: RAMIPRIL 5 MG CAP PO SCH (09:08)
[2019-02-04] MEDS: GABAPENTIN 100 MG CAP PO SCH ×3 (09:08→22:15)
[2019-02-04] MEDS: ESCITALOPRAM OXALATE 10 MG TAB PO SCH (09:08)
[2019-02-04] MEDS: ENOXAPARIN 40 MG/0.4 ML SYR SC SCH (09:09)
--- NOTE | 2019-02-04 09:39 | SOAPPROG ---
SOAP Progress Note Assessment/Plan: Assessment: S/P robotic sigmoid, doing well. Advance diet. Transition to po pain meds. Lovenox. Plan: 02/03/19 15:26 02/04/19 09:38 Subjective: Patient feels better, pain improved, no N/V. Saleem clears without difficulty. + BM today, small amt blood. Objective: Vital Signs Temp Pulse Resp BP Pulse Ox 37.1 C 61 16 110/73 94 02/04/19 08:00 02/04/19 08:00 02/04/19 08:00 02/04/19 09:08 02/04/19 08:00 Laboratory Results 02/04/19 04:39 02/04/19 04:39 02/03/19 02/04/19 02/05/19 05:59 05:59 05:59 Intake Total 1999 675 Output Total 3175 2 Balance -1175 673 Alert, NAD RRR Abd soft, inc TTP Inc C/D/I ICD10 Worksheet Patient Problems: Problems Problem Status Onset Diverticulitis large intestine Acute - ICD10 Problem Qualifiers (1) Diverticulitis large intestine
[2019-02-04] MEDS: ZOLPIDEM TARTRATE 5 MG TAB PO PRN (22:15)
[2019-02-05] MEDS: KETOROLAC 15 MG/1 ML SDV IVP SCH ×2 (05:25→13:09)
--- NOTE | 2019-02-05 09:07 | SOAPPROG ---
SOAP Progress Note Assessment/Plan: Assessment: S/P robotic sigmoid, doing well. Plan d/c home. Discussed questions, signs/ symptoms of concern. Plan: 02/03/19 15:26 02/04/19 09:38 02/05/19 09:06 Subjective: Patient without complaints, denies pain. + flatus, no BM since yesterday. Saleem reg diet, no N/V. Objective: Vital Signs Temp Pulse Resp BP Pulse Ox 36.6 C 62 14 122/83 H 97 02/05/19 08:00 02/05/19 08:00 02/05/19 08:00 02/05/19 08:00 02/05/19 08:00 Laboratory Results 02/04/19 04:39 02/04/19 04:39 02/04/19 02/05/19 02/06/19 05:59 05:59 05:59 Intake Total 675 Output Total 2 Balance 673 Alert, NAD RRR Abd soft, NTTP Inc C/D/I ICD10 Worksheet Patient Problems: Problems Problem Status Onset Diverticulitis large intestine Acute - ICD10 Problem Qualifiers (1) Diverticulitis large intestine
[2019-02-05] MEDS: RAMIPRIL 5 MG CAP PO SCH (09:18)
[2019-02-05] MEDS: GABAPENTIN 100 MG CAP PO SCH (09:18)
[2019-02-05] MEDS: ESCITALOPRAM OXALATE 10 MG TAB PO SCH (09:19)
--- NOTE | 2019-02-05 09:23 | ASDISCHSUM ---
Discharge Information Plan Status:Home with No Needs Medically Cleared to Leave: Discharge Date: D/C Disposition: ADT D/C Disposition:Home, Routine, Self-Care Projected Discharge Date: Transportation at D/C: Discharge Delay Reason: Follow-Up Date: Discharge Slot: Final Diagnosis: Placement Information Patient Contact Information Contact Name:NARINDER Relationship: Address: City: [facility] Phone: State/Zip Code: Email: Financial Information Financial Class:CHIAN Primary Plan Desc:[facility] Primary Plan Number:[id number] Secondary Plan Desc: Secondary Plan Number: Assessment Information LACE LACE Length of stay for Answers: 3 days current admission Acuity / Level of Answers: Yes Care: Did the patient have an inpatient admission? Comorbidities - select Answers: Opioid dependence all that apply / Chronic pain Other Notes: HTN; Diverticulitis # of Emergency department Answers: 1-2 visits in the last 6 months Social determinants Answers: History of substance abuse (ETOH, street drugs, prescription drugs, etc.) Mental health diagnosis (anxiety, depression, pers onality disorders, etc.) Score: 18 Date Signed: 02/05/2019 09:19 AM Electronically Signed By:Alley [email or web address].RN [facility] CM Progress Note CM Note CM Note Notes: Pt is a 63 y/o man admitted for diverticula of intestine. CM met w/ pt and introduced self. Pt reports a hx of etoh abuse and has been off and on the wagon for a long time. Pt reports that he has a sponsor and goes to . Pt is aware of the warning signs. Pt does not need resources at this time. CM to available for changes. Plan: Independent Date Signed: 02/03/2019 03:02 PM Electronically Signed By:JACKELYN Nunez Case Management Discharge Plan Note Case Management Discharge Discharge Order Complete? Answers: Yes Transportation Arranged Answers: Family/Friends Family Notified Answers: Yes Notes: by pt Discharge Comments Notes: Pt is being discharged home with no needs identified by CM. He has called a friend to pick him up. Date Signed: 02/05/2019 09:21 AM Electronically Signed By:Alley Del Angel Intervention Information
[2019-02-05 11:27] VITALS: BP 122/83
[2019-02-05] MEDS: ENOXAPARIN 40 MG/0.4 ML SYR SC SCH (11:48)
--- NOTE | 2019-02-12 10:27 | GPROG ---
[f rep st] PROGRESS NOTE POST ANESTHESIA NOTE DATE OF SERVICE: 02/02/2019 The patient was visited on 02/02/2019, at about 5 in the afternoon, at which point he was recovering nicely from a da Nilson-assisted left colectomy. He was doing well, was requiring minimal oxygen, had no cardiovascular or respiratory issues otherwise, was awake, alert, able to participate, having no nausea, vomiting, or significant pain. He had no apparent anesthetic complications. /[id number]/MODL
== END 2019-02-05 14:50 | disposition home or self-care (01) | DRG 330 ==
LOC: F3N 11:09 → F3E 18:46
PROVIDERS: ADMIT Surgery; ATTEND Surgery
DX: K57.32 Diverticulitis of large intestine without perforation or abscess without bleeding (principal); Q25.44 Congenital dilation of aorta; I10 Essential (primary) hypertension; G47.30 Sleep apnea, unspecified; F32.9 Major depressive disorder, single episode, unspecified; F41.9 Anxiety disorder, unspecified; Z87.891 Personal history of nicotine dependence
CPT/HCPCS: J0694; J1100; J1170; J1650; J1885; J2001; J2250; J2370; J2405; J2550; J2704; J2765; J3010